=== PATIENT | male | born 1970 | race Caucasian/White ===

== ENCOUNTER → 2024-03-06 06:28 | Day surgery (SDC) | payer BC, SELFPAY | LOC: GI 06:28 | PROVIDERS: ATTENDING PHYSICIAN Internal Medicine | DX: Z12.11 Encounter for screening for malignant neoplasm of colon (principal); K63.89 Other specified diseases of intestine; K57.30 Diverticulosis of large intestine without perforation or abscess without bleeding; K64.8 Other hemorrhoids | CPT/HCPCS: 45380; 88305 ==

== ENCOUNTER → 2025-02-05 07:11 | Outpatient (REF) | payer BC, SELFPAY | LOC: HWRAD 07:11 | PROVIDERS: ATTENDING PHYSICIAN Physician Assistant Medical | DX: R10.11 Right upper quadrant pain (principal); R11.0 Nausea; F10.20 Alcohol dependence, uncomplicated | CPT/HCPCS: 76700 ==